=== PATIENT | male | born 1970 | race Two or more races ===

== ENCOUNTER 2022-10-28 20:13 | Emergency (ER) | payer OTHER ==
[~2022-10-28] VITALS: Ht 177.8 cm; Wt 106.6 kg
[2022-10-28] MEDS ORDERED: JARDIANCE25 MG PO (20:44)
[2022-10-28] MEDS ORDERED: METFORMIN HCL1000 M3 PO (20:45)
[2022-10-28] MEDS ORDERED: ATACAND HCT 321 EAC1 PO (22:31)
== END 2022-10-28 22:38 | disposition home or self-care (01) ==
LOC: ER 20:13
DX: I16.9 Hypertensive crisis, unspecified (principal)

== ENCOUNTER 2023-01-30 19:14 | Emergency (ER) | payer OTHER ==
[~2023-01-30] VITALS: Ht 152.4 cm; Wt 108.9 kg
[~2023-01-30 19:14] MED LIST: ATACAND HCT 321 EAC1 PO; JARDIANCE25 MG PO; METFORMIN HCL1000 M3 PO
== END 2023-01-30 23:25 | disposition home or self-care (01) ==
LOC: ER 19:14
DX: E16.2 Hypoglycemia, unspecified (principal); G45.8 Other transient cerebral ischemic attacks and related syndromes; R42 Dizziness and giddiness; I10 Essential (primary) hypertension; E11.9 Type 2 diabetes mellitus without complications; Z79.84 Long term (current) use of oral hypoglycemic drugs